=== PATIENT | male | born 1970 | race Caucasian/White ===

== ENCOUNTER 2018-02-04 19:36 | Emergency (ER) | payer OTHER ==
--- NOTE | 2018-02-04 20:16 | EDM.PDOC ---
ED HPI GENERAL MEDICAL PROBLEM - General Chief Complaint: General Stated Complaint: LT RIB PAIN Time Seen by Provider: 02/04/18 19:36 Source of Information: Reports: Patient, Family History Limitations: Reports: No Limitations - History of Present Illness INITIAL COMMENTS - FREE TEXT/NARRATIVE: 47 y.o.w.m came to the ed with is family one days after he hit his left chest wall on the edge of a swimming pool. Pt took motrin last night without help for pain. No SOB, No N/V/D No F/C, no other acute medical issues. 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 [Unable to Verify Home Med List] 02/04/18 [History] Past Medical History Cardiovascular History: Reports: Heart Failure, Hypertension Musculoskeletal History: Reports: Arthritis Psychiatric History: Reports: Depression Endocrine/Metabolic History: Reports: Diabetes, Type II, Hypothyroidism Social & Family History - Family History Family Medical History: Noncontributory - Tobacco Use Smoking Status *Q: Never Smoker - Caffeine Use Caffeine Use: Reports: Coffee, Soda - Recreational Drug Use Recreational Drug Use: No ED ROS GENERAL - Review of Systems Review Of Systems: See Below Constitutional: Reports: No Symptoms HEENT: Reports: No Symptoms Respiratory: Reports: No Symptoms Cardiovascular: Reports: Chest Pain (left chest wall) Endocrine: Reports: No Symptoms GI/Abdominal: Reports: No Symptoms : Reports: No Symptoms Musculoskeletal: Reports: No Symptoms Skin: Reports: No Symptoms Neurological: Reports: No Symptoms Psychiatric: Reports: No Symptoms Hematologic/Lymphatic: Reports: No Symptoms Immunologic: Reports: No Symptoms ED EXAM, GENERAL - Physical Exam Exam: See Below Exam Limited By: No Limitations General Appearance: Alert, WD/WN, Mild Distress Eye Exam: Bilateral Eye: Normal Inspection Ears: Normal External Exam Ear Exam: Bilateral Ear: Auricle Normal Nose: Normal Inspection, Normal Mucosa Throat/Mouth: Normal Inspection, Normal Lips, Normal Voice, No Airway Compromise Head: Atraumatic, Normocephalic Neck: Normal Inspection, Supple, Non-Tender, Full Range of Motion Respiratory/Chest: Lungs Clear, No Accessory Muscle Use, Other (tender mid left chest wall.) Cardiovascular: Normal Peripheral Pulses, Regular Rate, Rhythm, No Edema, No Gallop Peripheral Pulses: 1+: Brachial (R) GI/Abdominal: Normal Bowel Sounds, Soft, Non-Tender, No Organomegaly, No Abnormal Bruit, No Mass (Male) Exam: Deferred Rectal (Males) Exam: Deferred Back Exam: Normal Inspection, Full Range of Motion Extremities: Normal Inspection, Normal Range of Motion, Non-Tender, No Pedal Edema Neurological: Alert, Oriented, CN II-XII Intact, Normal Cognition, Normal Gait Psychiatric: Normal Affect, Normal Mood Skin Exam: Warm, Dry, Intact, Normal Color, No Rash Lymphatic: No Adenopathy Course - Vital Signs Text/Narrative:: 47 y.o.w.m came to the ed with is family one days after he hit his left chest wall on the edge of a swimming pool. Pt took motrin last night without help for pain. No SOB, No N/V/D No F/C, no other acute medical issues. BP 138/69 RR 18 Pulse ox 98% on RA Temp 36.8 pulse 76 PE: WNWD W M with left c/.w pain with deep insp. Imaging: Mildly displaced left 8th rip fx Impression: 8th rib Fx with mild displacement, Fall Tx: Ice, Motrin, [place] Reexam: Improved Plan: D/C with instructions Last Recorded V/S: Last Vital Signs Temp 36.8 C 02/04/18 20:38 Pulse 77 02/04/18 20:38 Resp 17 02/04/18 20:38 BP 153/77 H 02/04/18 20:38 Pulse Ox 98 02/04/18 20:38 - Orders/Labs/Meds Orders: Active Orders 24 hr Category Date Time Status Chest 2V [CR] Stat Exams 02/04/18 19:51 Taken Ribs 3V wo Chest Lt [CR] Stat Exams 02/04/18 19:52 Taken Meds: Medications Discontinued Medications Generic Name Dose Route Start Last Admin Trade Name Angélica PRN Reason Stop Dose Admin Ibuprofen 600 mg 02/04/18 20:28 02/04/18 20:32 Motrin PO 02/04/18 20:29 600 mg ONETIME ONE Administration Departure - Departure Time of Disposition: 20:25 Disposition: Home, Self-Care 01 Condition: Good Clinical Impression: Sprain of ribs, initial encounter - Discharge Information Instructions: Acetaminophen; Hydrocodone tablets or capsules Referrals: PCP,None [Primary Care Provider] - Forms: ED Department Discharge Additional Instructions: Please apply ice to the affected area, please cont to take Motrin, [place] for severe pain only. Please f/u, come back if your symptoms get worse acutely - My Orders Last 24 Hours: My Active Orders 02/04/18 19:51 Chest 2V [CR] Stat 02/04/18 19:52 Ribs 3V wo Chest Lt [CR] Stat - Assessment/Plan Last 24 Hours: My Active Orders 02/04/18 19:51 Chest 2V [CR] Stat 02/04/18 19:52 Ribs 3V wo Chest Lt [CR] Stat
[2018-02-04] MEDS ORDERED: Ibuprofen 600 MG Tab PO ONE (20:28)
[2018-02-04] MEDS ORDERED: Acetaminophen/HYDROcodone 325-5 MG Tab PO ONE (20:28)
== END 2018-02-04 20:38 | disposition home or self-care (01) ==
LOC: FB.ED 19:36
DX: S22.32XA Fracture of one rib, left side, initial encounter for closed fracture (principal); W19.XXXA Unspecified fall, initial encounter
CPT/HCPCS: 71046; 71101; 99283; A9270